=== PATIENT | female | born 1970 | race Hispanic/Latino ===

== ENCOUNTER 2019-11-28 13:18 | Inpatient (IN) | payer BC, OTHER ==
[~2019-11-28] VITALS: Ht 154.9 cm; Wt 109.8 kg
[~2019-11-28 13:18] MED LIST: BENTYL20 MG PO; CELEXA40 MG; CIPROFLOXACIN500 MG PO; FLAGYL500 MG PO; FOLIC ACID1 MG PO; LEVAQUIN500 MG PO; LEVOFLOXACIN500 MG PO; LISINOPRIL-HCT1 EAC1 PO; NEXIUM40 MG PO; PENTASA500 MG PO; PHENERGAN25 MG/1 M1 PO; PREDNISONE10 MG PO; PREDNISONE20 MG PO; PRILOSEC40 MG PO; REMICADE100 MG/VIA; Z.0.ZESTRIL20 MG PO; [UNRECOGNIZED DRUG - OTHER] PO
[2019-11-28] MEDS ORDERED: SODIUM CHLORIDE 0.9% 1000ML 1,000 ML IV STA (13:21)
[2019-11-28] MEDS ORDERED: MORPHINE SULFATE INJ 4 MG/ML INJ 1ML IV STA (13:21)
--- NOTE | 2019-11-28 13:24 | Emergency Department Note ---
History of Present Illnes History of Present Illness Chief Complaint: Abdominal Complaints History of Present Illness This is a 49 year old female PMH of crohn's disease presents to the ED for acute abd pain with GI bleed Onset (how long ago): day(s) Location: diffuse abdomen Radiation: Reports abdomen Severity: moderate Onset quality: gradual Duration (how long): day(s) Timing of current episode: constant Progression: worsening Chronicity: recurrent Relieving factors: medication Exacerbating factors: movement Associated symptoms: Reports nausea/vomiting Treatments prior to arrival: none Previous service: tests performed, observation, one or more referrals, re- evaluation Past Medical/Family History Physician Review I have reviewed the patient's past medical and family history. Any updates have been documented here. Past Medical History Recent Fever: No Clinical Suspicion of Infectio: No New/Unexplained Change in Ment: No Other Medical History: crohn's disease IBS Social History Smoking Cessation: Never Smoker Alcohol Use: None Any Illegal Drug Use: No Other Last Tetanus: utd Review of Systems Review of Systems Constitutional: Denies fever EENTM: Reports no symptoms Cardiovascular: Reports no symptoms Respiratory: Reports no symptoms Gastrointestinal: Reports abdominal pain, Reports nausea, Reports vomiting Genitourinary: Reports no symptoms Musculoskeletal: Reports no symptoms Integumentary: Reports no symptoms Neurological: Reports no symptoms Psychological: Reports no symptoms Endocrine: Reports no symptoms Hematological/Lymphatic: Reports no symptoms Physical Exam Related Data Allergies: Coded Allergies: codeine (Verified Adverse Reaction, Mild, NAUSEA/VOMITING, 11/28/19) Physical Exam CONSTITUTIONAL Constitutional: Present morbidly obese HENT HENT: Present normocephalic, Present atraumatic, Present oropharynx clear/moist, Present nose normal HENT L/R: Present left ext ear normal, Present right ext ear normal EYES Eyes: Reports PERRL, Reports conjunctivae normal NECK Neck: Present ROM normal PULMONARY Pulmonary: Present effort normal, Present breath sounds normal CARDIOVASCULAR Cardiovascular: Present regular rhythm, Present heart sounds normal, Present capillary refill normal, Present normal rate GASTROINTESTINAL Abdominal: Present soft, Present distension, Present tender GENITOURINARY Genitourinary: Present exam deferred SKIN Skin: Present warm, Present dry MUSCULOSKELETAL Musculoskeletal: Present ROM normal NEUROLOGICAL Neurological: Present alert, Present oriented x 3, Present no gross motor or sensory deficits PSYCHOLOGICAL Psychological: Present mood/affect normal, Present judgement normal Results Laboratory Lab results reviewed: Yes Laboratory comments CBC : WBC 25.01 HgB 16.5 Platelets 518 CMP : Glucose 182 UA : Neg Imaging Imaging results reviewed: Yes Impressions [place] [address] Patient Name: SHIRLEY METZGER MR #: [id number] : 1970 Age/Sex: 49/F Req #: [id number] Adm Physician: EHSAN KLEIN MD Ordered by: LAKE DAHL DO Report #: [id number] Location: [facility] Room/Bed: [place] [address] Procedure: [id number] CT/CT ABDOMEN/PELVIS W Exam Date: 11/28/19 Exam Time: 1625 REPORT STATUS: Signed EXAM: CT Abdomen and Pelvis WITH contrast INDICATION: ^abdominal pain, h/o crohn's ^[id number] ^1625 COMPARISON: CT abdomen and pelvis 11/04/2008 TECHNIQUE: Abdomen and pelvis were scanned utilizing a multidetector helical scanner from the lung base to the pubic symphysis after administration of IV contrast. Coronal and sagittal reformations were obtained. Routine protocol was performed. Scan was performed when during portal venous phase. IV CONTRAST: 100 mL of Isovue-370 ORAL CONTRAST: Volumen RADIATION DOSE: Total DLP: 876 mGy*cm Estimated effective dose: (DLP x 0.015 x size factor) mSv COMPLICATIONS: None FINDINGS: LINES and TUBES: None. LOWER THORAX: Unremarkable HEPATOBILIARY: No focal hepatic lesions. No biliary ductal dilation. GALLBLADDER: Cholecystectomy. SPLEEN: No splenomegaly. PANCREAS: No focal masses or ductal dilatation. ADRENALS: No adrenal nodules KIDNEYS/URETERS: Kidneys enhance symmetrically. No hydronephrosis. No cystic or solid mass lesions. No stones. GI TRACT: Interval worsening inflammatory changes of the terminal ileum and adjacent loops of small bowel in the right lower quadrant, better seen on series 301, image 54 with mildly increased adjacent low attenuation free fluid in the pelvis. Previously noted acute inflammation of the small bowel in the left lower quadrant and midline has resolved. No free air. Appendix is normal. PELVIC ORGANS/BLADDER: Unremarkable. LYMPH NODES: No lymphadenopathy. VESSELS: Unremarkable. PERITONEUM / RETROPERITONEUM: No free air or fluid. BONES: Unremarkable. SOFT TISSUES: Unremarkable. IMPRESSION: Worsening wall thickening and inflammatory changes of the terminal ileum and adjacent loops of small bowel in the right lower quadrant when compared to 2017 and consistent with Crohn's disease flare. Resolution of the active inflammatory changes in a few loops of small bowel in the left lower quadrant and midline abdomen. No perforation. No definitive fistulous tract, however evaluation is limited. Signed by: Dr. Jomar Serrano M.D. on 11/28/2019 6:00 PM Dictated By: JOMAR SERRANO MD 1800 Transcribed By: OMAR on 11/28/19 1800 COPY TO: LAKE DAHL DO~ Assessment & Plan Medical Decision Making MDM 49 yof with crohn's dz. CBC, CMP, Lipase and CTS of abd/pelvis ordered to evaluate for abdominal abscess, appendicitis, biliary pathology, pancreatitis, perforated viscus. Reassessment Reassessment time: 17:58 Reassessment S/W Dr Rincon who is telephone cleaner for Dr Rodriguez for GI consultation Assessment & Plan Final Impression: (1) Leukocytosis (2) Crohn's colitis Depart Disposition: ADMITTED Last Vital Signs Date Time Temp Pulse Resp B/P (MAP) Pulse Ox O2 Delivery O2 Flow Rate FiO2 12/01/19 11:24 98.8 72 18 138/70 (92) 98 12/01/19 09:17 Room Air 11/30/19 14:55 6 Home Meds Reported Medications Citalopram Hydrobromide (CELEXA) 40 Mg Tablet 07/13/16 Omeprazole (PRILOSEC) 40 Mg Capsule., 40 MG PO DAILY 09/18/13 Lisinopril/Hydrochlorothiazide (LISINOPRIL-HCTZ 20-25 MG TAB) 1 Each Tablet, 1 TAB PO DAILY 10/10/12 Folic Acid (FOLIC ACID) 1 Mg Tablet, 1 MG PO DAILY 10/10/12 Mesalamine (PENTASA) 500 Mg Capcr, 1000 CAP PO 4 TIMES PER DAY 10/10/12 LAKE DAHL DO Nov 28, 2019 13:24
[2019-11-28] MEDS ORDERED: ONDANSETRON HCL INJ 2MG/ML 2ML 2 MG/ML VIAL IV NR ×2 (13:30→16:00)
[2019-11-28 14:01] LABS: BASOPHILS # (AUTO) 0.1 (0.0-0.1); BASOPHILS % 0.6 % (0.0-1.0); EOSINOPHILS # (AUTO) 0.1 (0.0-0.4); EOSINOPHILS % 0.3 % (0.0-6.0); HEMATOCRIT 52.2 % (34.2-44.1); HEMOGLOBIN 16.5 g/dL (12.0-16.0); LYMPHOCYTES # (AUTO) 4.2 (1.0-3.2); LYMPHOCYTES % 16.8 % (18.0-39.1); MEAN CORPUSCULAR HEMOGLOBIN 27.1 pg (28-32); MEAN CORPUSCULAR HGB CONC 31.6 g/dL (31-35); MEAN CORPUSCULAR VOLUME 85.7 fL (81-99); MONOCYTES # (AUTO) 0.7 (0.2-0.8); MONOCYTES % 2.9 % (4.4-11.3); NEUTROPHILS # (AUTO) 19.7 (2.1-6.9); NEUTROPHILS % 78.6 % (38.7-80.0); PLATELET COUNT 515 x10e3/uL (140-360); RED BLOOD COUNT 6.09 x10e6/uL (3.6-5.1); RED CELL DISTRIBUTION WIDTH 15.1 % (11.7-14.4)
[2019-11-28 14:18] LABS: ALANINE AMINOTRANSFERASE 19 IU/L (0-55); ALBUMIN 3.7 g/dL (3.5-5.0); ALBUMIN/GLOBULIN RATIO 0.9 (0.8-2.0); ALKALINE PHOSPHATASE 111 IU/L (40-150); BLOOD UREA NITROGEN 12 mg/dL (7-26); BUN/CREATININE RATIO 15 (6-25); CALCIUM 9.5 mg/dL (8.4-10.2); CARBON DIOXIDE 20 mmol/L (22-29); CHLORIDE 101 mmol/L (98-107); CREATININE, SERUM 0.82 mg/dL (0.57-1.11); EST GLOMERULAR FILTRATION RATE > 60 ML/MIN (60-); GLUCOSE 182 mg/dL (74-118); LIPASE 19 U/L (8-78); SODIUM 137 mmol/L (136-145)
[2019-11-28] MEDS ORDERED: SODIUM CHLORIDE 0.9% 50ML 50 ML ONE (15:42)
[2019-11-28] MEDS ORDERED: IOPAMIDOL 370 MG/ML 200 ML INFUS..BTL INJ ONE (15:42)
[2019-11-28] MEDS ORDERED: MORPHINE SULFATE INJ 4 MG/ML INJ 1ML IV ONE (15:45)
--- NOTE | 2019-11-28 17:41 | NUR ---
MD aware of patient wbc count, per MD no blood cultures needed, but he will place an order in for antibiotics.
[2019-11-28] MEDS ORDERED: ONDANSETRON HCL INJ 2MG/ML 2ML 2 MG/ML VIAL IV PRN (18:00)
--- NOTE | 2019-11-28 18:03 | Diagnostic Imaging Report ---
EXAM: CT Abdomen and Pelvis WITH contrast INDICATION: ^abdominal pain, h/o crohn's ^[id number] ^1625 COMPARISON: CT abdomen and pelvis 11/04/2008 TECHNIQUE: Abdomen and pelvis were scanned utilizing a multidetector helical scanner from the lung base to the pubic symphysis after administration of IV contrast. Coronal and sagittal reformations were obtained. Routine protocol was performed. Scan was performed when during portal venous phase. IV CONTRAST: 100 mL of Isovue-370 ORAL CONTRAST: Volumen RADIATION DOSE: Total DLP: 876 mGy*cm Estimated effective dose: (DLP x 0.015 x size factor) mSv COMPLICATIONS: None FINDINGS: LINES and TUBES: None. LOWER THORAX: Unremarkable HEPATOBILIARY: No focal hepatic lesions. No biliary ductal dilation. GALLBLADDER: Cholecystectomy. SPLEEN: No splenomegaly. PANCREAS: No focal masses or ductal dilatation. ADRENALS: No adrenal nodules KIDNEYS/URETERS: Kidneys enhance symmetrically. No hydronephrosis. No cystic or solid mass lesions. No stones. GI TRACT: Interval worsening inflammatory changes of the terminal ileum and adjacent loops of small bowel in the right lower quadrant, better seen on series 301, image 54 with mildly increased adjacent low attenuation free fluid in the pelvis. Previously noted acute inflammation of the small bowel in the left lower quadrant and midline has resolved. No free air. Appendix is normal. PELVIC ORGANS/BLADDER: Unremarkable. LYMPH NODES: No lymphadenopathy. VESSELS: Unremarkable. PERITONEUM / RETROPERITONEUM: No free air or fluid. BONES: Unremarkable. SOFT TISSUES: Unremarkable. IMPRESSION: Worsening wall thickening and inflammatory changes of the terminal ileum and adjacent loops of small bowel in the right lower quadrant when compared to 2017 and consistent with Crohn's disease flare. Resolution of the active inflammatory changes in a few loops of small bowel in the left lower quadrant and midline abdomen. No perforation. No definitive fistulous tract, however evaluation is limited. Signed by: Dr. Taya Figueroa M.D. on 11/28/2019 6:00 PM
[2019-11-28] MEDS: PIPER-TAZ 3.375 GM 50 ML IV SCH (18:25)
[2019-11-28] MEDS: SODIUM CHLORIDE 0.9% 1000ML 1,000 ML IV SCH (18:25)
--- NOTE | 2019-11-28 18:46 | NUR ---
covid swab obtained and sent to lab.
--- NOTE | 2019-11-28 18:53 | NUR ---
report given to Austin AN
--- NOTE | 2019-11-28 19:10 | NUR ---
Seen patient on awake & alert. Pt was updated with awaiting bed assignment & she verbalizes understanding. No c/o pain & nausea at this time. VSS.
[2019-11-28 20:50] LABS: CLARITY,URINE SL CLOUDY (CLEAR); COLOR,URINE YELLOW (YELLOW); LEUKOCYTE ESTERASE ,URINE NEGATIVE (NEGATIVE)
[2019-11-28 20:51] LABS: BACTERIA,URINE RARE /HPF; BILIRUBIN,URINE NEGATIVE (NEGATIVE); EPITHELIAL CELLS,URINE FEW /LPF; KETONES,URINE NEGATIVE (NEGATIVE); NITRITE,URINE NEGATIVE (NEGATIVE); PROTEIN,URINE DIPSTICK NEGATIVE (NEGATIVE); URINE UROBILINOGEN 0.2 mg/dL (0.2 - 1)
[2019-11-28 20:58] LABS: AMPHETAMINES SCREEN,URINE NEGATIVE (NEGATIVE); BENZODIAZEPINES SCREEN,URINE NEGATIVE (NEGATIVE); PHENCYCLIDINE SCREEN,URINE NEGATIVE (NEGATIVE)
--- NOTE | 2019-11-28 22:40 | NUR ---
PATIENT WAS TRANSFERRED TO A INPATIENT HOSPITAL BED FOR COMFORT, PT AWARE THAT SHE MIGHT BE GETTING A ROOM ASSIGNMENT TONIGHT & VERBALIZES UNDERSTANDING. PT STATES SHE'S COMFORTABLE WITH NO PAIN. VSS
--- NOTE | 2019-11-28 23:18 | NUR ---
Received report from ER nurse. Patient going into 292.
--- NOTE | 2019-11-28 23:41 | History and Physical ---
REASON FOR ADMISSION: Crohn's disease exacerbation. HISTORY OF PRESENT ILLNESS: The patient is a lady with a known history of Crohn's disease, who presents with acute onset of GI pain with bleeding, where she was also noticed to have some leukocytosis that she was being admitted for further evaluation and treatment. PAST MEDICAL HISTORY: Significant for Crohn's and IBS. MEDICATIONS: See MAR. ALLERGIES: ARE TO CODEINE, WHICH CAUSES NAUSEA. SOCIAL HISTORY: Nonsmoker and nondrinker. FAMILY HISTORY: Noncontributory. PHYSICAL EXAMINATION: VITAL SIGNS: Temperature 98.3, pulse 93, blood pressure 148/87, sats 98% on room air. GENERAL: No apparent distress, lying in bed. NECK: Supple. No lymphadenopathy. CARDIOVASCULAR: Regular rate and rhythm. LUNGS: Clear to auscultation bilaterally. ABDOMEN: Soft, but tender in the midepigastric area with no peritoneal signs. No rebounding. EXTREMITIES: No clubbing or cyanosis. NEUROLOGIC: Nonfocal. ASSESSMENT AND PLAN: 1. Crohn's attack. We will continue with the antibiotics and we will consult Dr. Rodriguez, her GI doctor, I will let him decide on course of action as far as medication. 2. Leukocytosis. We will continue to monitor. Hopefully, will improve with treatment. 3. Hypertension. Continue to monitor. 4. Diabetes. Continue to monitor her fingersticks. Please see hospital chart for full details. MD RACHEL Loredo/ESVIN /[id number]
--- NOTE | 2019-11-28 23:52 | NUR ---
Patient arrived to the floor via stretcher.
[2019-11-29] VITALS (8 sets, daily range): BP systolic 145–160; BP diastolic 69–83
[2019-11-29] MEDS: MORPHINE SULFATE 2 MG/ML SYR 1ML IV PRN ×2 (00:26→07:42)
[2019-11-29] MEDS: ONDANSETRON HCL INJ 2MG/ML 2ML 2 MG/ML VIAL IV PRN ×2 (00:27→07:42)
[2019-11-29] MEDS: SODIUM CHLORIDE 0.9% 1000ML 1,000 ML IV SCH ×3 (02:00→19:38)
--- NOTE | 2019-11-29 02:00 | NUR ---
Patient c/o pain. Received pain and nausea meds as ordered by MD. Continue monitor.
--- NOTE | 2019-11-29 03:56 | NUR ---
Patient resting quitly at this time. Continue to monitor.
[2019-11-29] MEDS: PIPER-TAZ 3.375 GM 50 ML IV SCH ×4 (05:30→17:12)
[2019-11-29 06:34] LABS: BASOPHILS # (AUTO) 0.1 (0.0-0.1); BASOPHILS % 0.7 % (0.0-1.0); EOSINOPHILS # (AUTO) 0.2 (0.0-0.4); HEMATOCRIT 40.9 % (34.2-44.1); HEMOGLOBIN 12.8 g/dL (12.0-16.0); LYMPHOCYTES # (AUTO) 3.8 (1.0-3.2); LYMPHOCYTES % 22.7 % (18.0-39.1); MEAN CORPUSCULAR HEMOGLOBIN 27.8 pg (28-32); MEAN CORPUSCULAR HGB CONC 31.3 g/dL (31-35); MEAN CORPUSCULAR VOLUME 88.7 fL (81-99); MONOCYTES # (AUTO) 0.9 (0.2-0.8); MONOCYTES % 5.6 % (4.4-11.3); NEUTROPHILS # (AUTO) 11.5 (2.1-6.9); NEUTROPHILS % 69.6 % (38.7-80.0); PLATELET COUNT 373 x10e3/uL (140-360); RED BLOOD COUNT 4.61 x10e6/uL (3.6-5.1)
--- NOTE | 2019-11-29 06:56 | NUR ---
RECEIVED BEDSIDE SHIFT REPORT FROM OFF GOING NURSE. PATIENT IS RESTING IN BED. NO ACUTE DISTRESS NOTED. CALL LIGHT WITHIN REACH. BED IN THE LOWEST POSITION.
[2019-11-29 06:59] LABS: ALANINE AMINOTRANSFERASE 40 IU/L (0-55); ALBUMIN/GLOBULIN RATIO 0.9 (0.8-2.0); ALKALINE PHOSPHATASE 89 IU/L (40-150); ANION GAP 13.6 mmol/L (8-16); BLOOD UREA NITROGEN 10 mg/dL (7-26); BUN/CREATININE RATIO 16 (6-25); CALCIUM 8.4 mg/dL (8.4-10.2); CARBON DIOXIDE 25 mmol/L (22-29); CHLORIDE 101 mmol/L (98-107); CREATININE, SERUM 0.64 mg/dL (0.57-1.11); EST GLOMERULAR FILTRATION RATE > 60 ML/MIN (60-); GLUCOSE 121 mg/dL (74-118); POTASSIUM 3.6 mmol/L (3.5-5.1); SODIUM 136 mmol/L (136-145)
[2019-11-29] MEDS ORDERED: PEG (High)/E-LYTE SOLN 4,000 ML BTL PO ONE (11:30)
[2019-11-29] MEDS ORDERED: MORPHINE SULFATE INJ 4 MG/ML INJ 1ML IV PRN (11:45)
--- NOTE | 2019-11-29 19:07 | NUR ---
BEDSIDE SHIFT REPORT GIVEN TO ONCOMING NURSE. PATIENT IS RESTING IN BED. NO ACUTE DISTRESS NOTED. CALL LIGHT WITHIN REACH. BED IN THE LOWEST POSITION.
--- NOTE | 2019-11-29 19:36 | NUR ---
RECEIVED REPORT FROM 7AM NURSE, PATIENT RESTING IN BED DRINKING THE GOLYTELY, IV INFUSING, NO COMPLAINTS OF PAIN. WILL CONTINUE TO MONITOR. CALL LIGHT IN REACH.
[2019-11-30] VITALS (8 sets, daily range): BP systolic 115–156; BP diastolic 50–68
[2019-11-30] MEDS: PIPER-TAZ 3.375 GM 50 ML IV SCH ×5 (00:45→18:00)
--- NOTE | 2019-11-30 00:45 | NUR ---
PATIENT REMAIN NPO FOR PROCEDURE TODAY, STOOL IS YELLOW LIQUID AND NO PARTICLES. IV INFUSING, CALL LIGHT IN REACH. WILL CONTINUE TO MONITOR.
[2019-11-30] MEDS: SODIUM CHLORIDE 0.9% 1000ML 1,000 ML IV SCH ×2 (01:50→20:52)
[2019-11-30 06:36] LABS: BASOPHILS # (AUTO) 0.1 (0.0-0.1); BASOPHILS % 0.6 % (0.0-1.0); EOSINOPHILS # (AUTO) 0.2 (0.0-0.4); EOSINOPHILS % 1.8 % (0.0-6.0); HEMATOCRIT 35.8 % (34.2-44.1); LYMPHOCYTES # (AUTO) 3.9 (1.0-3.2); LYMPHOCYTES % 33.1 % (18.0-39.1); MEAN CORPUSCULAR HEMOGLOBIN 27.9 pg (28-32); MEAN CORPUSCULAR HGB CONC 30.7 g/dL (31-35); MEAN CORPUSCULAR VOLUME 90.9 fL (81-99); MONOCYTES # (AUTO) 0.6 (0.2-0.8); MONOCYTES % 4.7 % (4.4-11.3); NEUTROPHILS # (AUTO) 6.9 (2.1-6.9); NEUTROPHILS % 59.5 % (38.7-80.0); PLATELET COUNT 284 x10e3/uL (140-360); RED BLOOD COUNT 3.94 x10e6/uL (3.6-5.1)
[2019-11-30 07:06] LABS: ALANINE AMINOTRANSFERASE 29 IU/L (0-55); ALBUMIN 2.7 g/dL (3.5-5.0); ALBUMIN/GLOBULIN RATIO 0.9 (0.8-2.0); ALKALINE PHOSPHATASE 79 IU/L (40-150); ANION GAP 13.5 mmol/L (8-16); BLOOD UREA NITROGEN < 5 mg/dL (7-26); CALCIUM 7.8 mg/dL (8.4-10.2); CARBON DIOXIDE 21 mmol/L (22-29); CHLORIDE 106 mmol/L (98-107); CREATININE, SERUM 0.58 mg/dL (0.57-1.11); EST GLOMERULAR FILTRATION RATE > 60 ML/MIN (60-); GLUCOSE 93 mg/dL (74-118); MAGNESIUM 1.5 MG/DL (1.3-2.1); POTASSIUM 3.5 mmol/L (3.5-5.1); SODIUM 137 mmol/L (136-145)
[2019-11-30 07:08] LABS: BUN/CREATININE RATIO 9 (6-25)
--- NOTE | 2019-11-30 07:32 | NUR ---
REPORT GIVEN TO AM NURSE.
--- NOTE | 2019-11-30 08:00 | NUR ---
PT REMAINS NPO FOR PROCEDURE. AM SHOWER TAKEN.
--- NOTE | 2019-11-30 13:45 | NUR ---
PT TO OR VIA BED.
[2019-11-30] MEDS ORDERED: PROPOFOL IV EMULSION 10 MG/ML 20 ML VIAL ONE ×2 (14:33→14:46)
[2019-11-30] MEDS ORDERED: ETOMIDATE 2 MG/ML 10 ML INJ IV ONE (14:46)
[2019-11-30] MEDS ORDERED: FENTANYL CITRATE/PF 100MCG/2 ML INJ ONE (14:56)
[2019-11-30] MEDS ORDERED: MIDAZOLAM HCL 2 MG/2 ML VIAL ONE (14:56)
--- NOTE | 2019-11-30 15:30 | NUR ---
PT BACK IN ROOM AFTER PROCEDURE. NO C/O PAIN. IV FLUIDS RESTARTED
--- NOTE | 2019-11-30 17:30 | NUR ---
PT TOLERATED HER GI SOFT DIET.
--- NOTE | 2019-11-30 19:15 | NUR ---
Patient visited in room during nursing rounds. Patient alert and oriented x3. Ambulatory in room prn. No distress or discomfort noted. Pt tolerating GI soft diet well. Call sánchez within reach.
[2019-12-01] VITALS: BP 151/97
[2019-12-01] MEDS: PIPER-TAZ 3.375 GM 50 ML IV SCH ×3 (01:00→12:00)
[2019-12-01] MEDS: SODIUM CHLORIDE 0.9% 1000ML 1,000 ML IV SCH ×2 (03:54→10:00)
[2019-12-01 04:00] VITALS: BP 128/62
[2019-12-01 06:28] LABS: BASOPHILS # (AUTO) 0.1 (0.0-0.1); BASOPHILS % 0.8 % (0.0-1.0); EOSINOPHILS # (AUTO) 0.2 (0.0-0.4); EOSINOPHILS % 2.2 % (0.0-6.0); HEMATOCRIT 35.8 % (34.2-44.1); HEMOGLOBIN 11.1 g/dL (12.0-16.0); LYMPHOCYTES # (AUTO) 3.2 (1.0-3.2); LYMPHOCYTES % 30.2 % (18.0-39.1); MEAN CORPUSCULAR HEMOGLOBIN 27.3 pg (28-32); MEAN CORPUSCULAR VOLUME 88.2 fL (81-99); MONOCYTES # (AUTO) 0.5 (0.2-0.8); MONOCYTES % 5.1 % (4.4-11.3); NEUTROPHILS # (AUTO) 6.5 (2.1-6.9); NEUTROPHILS % 61.3 % (38.7-80.0); PLATELET COUNT 300 x10e3/uL (140-360); RED BLOOD COUNT 4.06 x10e6/uL (3.6-5.1)
[2019-12-01 06:40] LABS: ALANINE AMINOTRANSFERASE 25 IU/L (0-55); ALBUMIN 2.7 g/dL (3.5-5.0); ALBUMIN/GLOBULIN RATIO 0.8 (0.8-2.0); ALKALINE PHOSPHATASE 76 IU/L (40-150); BLOOD UREA NITROGEN < 5 mg/dL (7-26); CALCIUM 7.8 mg/dL (8.4-10.2); CARBON DIOXIDE 26 mmol/L (22-29); CHLORIDE 105 mmol/L (98-107); EST GLOMERULAR FILTRATION RATE > 60 ML/MIN (60-); GLUCOSE 91 mg/dL (74-118); MAGNESIUM 1.5 MG/DL (1.3-2.1); SODIUM 139 mmol/L (136-145)
[2019-12-01 06:43] LABS: BUN/CREATININE RATIO 8 (6-25)
--- NOTE | 2019-12-01 06:58 | NUR ---
RECEIVED BEDSIDE SHIFT REPORT FROM OFF GOING NURSE. PATIENT IS RESTING IN BED. NO ACUTE DISTRESS NOTED. CALL LIGHT WITHIN REACH. BED IN THE LOWEST POSITION.
[2019-12-01 08:13] VITALS: BP 140/52
[2019-12-01 09:17] VITALS: BP 140/52
[2019-12-01] MEDS ORDERED: POTASSIUM CHLORIDE 20 MEQ TAB CR PO STA (10:03)
[2019-12-01 11:24] VITALS: BP 138/70
--- NOTE | 2019-12-01 11:35 | NUR ---
PATIENT'S IV STARTED LEAKING. ATTEMPTED TO START A NEW ONE, UNSUCCESSFUL. DR. MONTELONGO TOLD PATIENT SHE CAN BE DC HOME FROM GI [facility]AND [facility]INT. PATIENT REFUSING TO BE STUCK AGAIN. NOTIFIED DR. GRIFFIN, WAITING ON ANSWER.
--- NOTE | 2019-12-01 12:40 | NUR ---
OFFERED PATIENT TO START IV AGAIN AT THIS TIME DUE TO IV ABT DUE AT 1200. PATIENT REFUSED.
--- NOTE | 2019-12-01 14:00 | NUR ---
Received discharge order from Dr. Díaz, patient is in stable condition. Discharge teaching provided to patient, she verbalized understanding. Discharge folder with paperwork on hand, Dr. Díaz is to call in prescriptions to patient's pharmacy. [facility]. Patient accompanied to private auto by staff.
== END 2019-12-01 14:00 | disposition home or self-care (01) | DRG 386 ==
LOC: ER 13:21 → ERHOLD 17:52 → MED/SURG3 23:22
PROVIDERS: ADMIT Internal Medicine; ATTEND Internal Medicine
PROC: 0DB38ZX Excision of Lower Esophagus, Via Natural or Artificial Opening Endoscopic, Diagnostic (ICD-10-PCS; 2019-11-30)
PROC: 0DB88ZX Excision of Small Intestine, Via Natural or Artificial Opening Endoscopic, Diagnostic (ICD-10-PCS; 2019-11-30)
PROC: 0DB78ZX Excision of Stomach, Pylorus, Via Natural or Artificial Opening Endoscopic, Diagnostic (ICD-10-PCS; 2019-11-30)
PROC: 0DB68ZX Excision of Stomach, Via Natural or Artificial Opening Endoscopic, Diagnostic (ICD-10-PCS; 2019-11-30)
PROC: 0DBB8ZX Excision of Ileum, Via Natural or Artificial Opening Endoscopic, Diagnostic (ICD-10-PCS; principal; 2019-11-30 11:00)
PROC: 0DBE8ZX Excision of Large Intestine, Via Natural or Artificial Opening Endoscopic, Diagnostic (ICD-10-PCS; 2019-11-30 11:00)
DX: K50.919 Crohn's disease, unspecified, with unspecified complications (principal); Z68.42 Body mass index [BMI] 45.0-49.9, adult; I10 Essential (primary) hypertension; K31.7 Polyp of stomach and duodenum; K44.9 Diaphragmatic hernia without obstruction or gangrene; K29.00 Acute gastritis without bleeding; E11.9 Type 2 diabetes mellitus without complications; Z11.59 Encounter for screening for other viral diseases; E66.01 Morbid (severe) obesity due to excess calories
CPT/HCPCS: 36415; 43239; 45378; 74177; 80053; 80307; 80320; 81001; 81025; 83690; 83735; 84702; 85025; 85651; 86140; 87493; 87635; 88305; 88312; 93005; 99284; J2250; J2270; J2405; J2543; J3010; J7030; Q9967